=== PATIENT | male | born 1995 | race Two or more races ===

== ENCOUNTER 2019-05-05 19:00 | Emergency (ER) | payer BC ==
[2019-05-05 19:30] VITALS: PULSE 70; RESP 18
[2019-05-05] MEDS ORDERED: IBUPROFEN 600 MG TAB PO STA (19:40)
--- NOTE | 2019-05-05 19:43 | ED ---
Lower Extremity Injury HPI - General Chief Complaint: Extremity Injury, Lower Stated Complaint: Knee Injury Time Seen by Provider: 05/05/19 19:14 Source: patient, family Mode of arrival: ambulatory Limitations: no limitations - History of Present Illness Initial Comments: 24-year-old male patient presents to the emergency department today for evaluation of left knee pain. Patient states his playing hockey about an hour and a half ago when another player slid into him causing injury to the knee. Patient states that the knee immediately gave out when he was unable to bear weight. Patient states he is having mild discomfort currently a 1 out of 10 on the pain scale. Patient states that he is able to ambulate however does increase his discomfort. Denies any numbness or tingling to the lower leg. Denies history of injury to the knee. Patient states that he is unable to lunge due to discomfort. He denies falling or any other injury. Patient denies any headache, neck pain, back pain, chest pain, shortness of breath, dizziness, weakness, abdominal pain, nausea, vomiting, or difficulties with bowel movements or urination. - Related Data Allergies Allergy/AdvReac Type Severity Reaction Status Date / Time No Known Allergies Allergy Verified 05/05/19 19:24 Review of Systems ROS Statement: Those systems with pertinent positive or pertinent negative responses have been documented in the HPI. ROS Other: All systems not noted in ROS Statement are negative. Past Medical History Past Medical History: No Reported History History of Any Multi-Drug Resistant Organisms: None Reported Past Surgical History: No Surgical Hx Reported Past Psychological History: No Psychological Hx Reported Smoking Status: Never smoker Past Alcohol Use History: None Reported Past Drug Use History: None Reported General Exam Limitations: no limitations General appearance: alert, in no apparent distress, other (Physical well- developed, well-nourished adult male patient in no acute distress. Vital signs upon presentation are temperature 97.9F, pulse 70, respirations 18, blood pressure 111/53, pulse ox 99% on room air.) Cardiovascular Exam: Present: regular rate, normal rhythm, normal heart sounds. Absent: systolic murmur, diastolic murmur, rubs, gallop, clicks GI/Abdominal exam: Present: soft, normal bowel sounds. Absent: distended, tenderness, guarding, rebound, rigid Extremities exam: Present: normal inspection, full ROM, normal capillary refill, other (Increased pain to the left knee with valgus and varus maneuvers. Stable joint with maneuvers and anterior drawer. No soft tissue swelling. Full ROM intact. Skin to the left leg is pink, warm, dry. Cap refills less than 3 seconds. Post tibial pulses 2+ and equal bilaterally.). Absent: tenderness, pedal edema, joint swelling, calf tenderness Neurological exam: Present: alert, oriented X3, CN II-XII intact Psychiatric exam: Present: normal affect, normal mood Skin exam: Present: warm, dry, intact, normal color. Absent: rash Course Vital Signs 05/05/19 05/05/19 19:21 20:39 Temperature 97.9 F 97.7 F Pulse Rate 70 70 Respiratory 18 18 Rate Blood Pressure 111/53 121/74 O2 Sat by Pulse 99 98 Oximetry Medical Decision Making - Medical Decision Making 24-year-old male patient presented to the emergency department today for evaluation of left knee injury while playing hockey. Physical examination reveals no soft tissue swelling. He exhibits full range of motion. Neurovascular status is intact. He has no laxity with valgus or varus ma neuvers. Negative anterior drawer. X-ray was obtained and is unremarkable. There is no sign of effusion. No bony abnormalities. Patient will be discharged home at this time with Devon wrap and ibuprofen. He is instructed to rest and elevate the knee. If he still having discomfort tomorrow he should not play hockey. He is instructed to follow-up with his primary care physician for further evaluation. Return parameters were discussed in detail. He verbalizes understanding and agrees with this plan. - Radiology Data Radiology results: image reviewed No bony abnormalities. No sign of effusion. Disposition Clinical Impression: Strain of left knee Disposition: HOME SELF-CARE Condition: Good Instructions (If sedation given, give patient instructions): Knee Pain (ED) Additional Instructions: Rest, ice, elevate the knee. Use Devon wrap for comfort and support. If symptoms are relieved you are able to play tomorrow. If not he should follow-up through primary care physician for further evaluation and possible further testing. Return to the emergency department immediately for any new, worsening, or concerning symptoms. Is patient prescribed a controlled substance at d/c from ED?: No Referrals: None,Stated [Primary Care Provider] - 1-2 days Time of Disposition: 20:37
[2019-05-05] MEDS ORDERED: IBUPROFEN 600 MG STARTER PACK 4 TAB BTL PO STA (20:36)
[2019-05-05 20:40] VITALS: BP 121/74; TEMP 97.7
--- NOTE | 2019-05-05 21:10 | XR ---
EXAMINATION TYPE: XR knee complete LT DATE OF EXAM: 05/05/2019 CLINICAL HISTORY: Pain, injury TECHNIQUE: Three views of the left knee are obtained. COMPARISON: None. FINDINGS: No fracture. Alignment is anatomic. Joint spaces are grossly maintained. No capsular distention. IMPRESSION: No fracture or dislocation.
== END 2019-05-05 20:42 | disposition home or self-care (01) ==
LOC: EC 19:00
DX: S86.912A Strain of unspecified muscle(s) and tendon(s) at lower leg level, left leg, initial encounter (principal); W50.0XXA Accidental hit or strike by another person, initial encounter; Y93.22 Activity, ice hockey
CPT/HCPCS: 99283